=== PATIENT | female | born 1930 | race Caucasian/White ===

== ENCOUNTER → 2016-07-26 | Outpatient (CLI) | payer MEDICARE, OTHER ==
--- NOTE | ~2016-07-26 | MY11 ---
[facility] A Service of [facility] RADIOLOGY TEXT RESULTS PATIENT: ADARSH LEVI LOCATION: [facility] : 32 UNIT #: [id number] AGE: [address]: Ayesha Montiel MD SEX: F ORDER DR: [id number] [address] [address] [id number] O MR#: [id number] Acc #: [id number] NAME: ADARSH LEVI : 1930 SEX: F STUDY DATE/TIME: 07/26/2016 11:37 UNIT: [facility] ROOM: STUDY DESCRIPTION: MY Mammogram Screening Dig James Attending Physician: Ayesha Montiel M.D. Referring Physician: Ayesha Montiel M.D. Ordering Physician: Ayesha Montiel M.D. Primary Care Physician: Ayesha Montiel M.D. MEDICAL IMAGING REPORT This report is preliminary unless electronic signature is present. EXAM Bilateral digital screening mammogram with CAD. HISTORY Routine screening. No current complaints. No family history of breast cancer. COMPARISON STUDIES 07/04/2015, 06/24/2015, 06/19/2013. FINDINGS MLO and CC digital views of each breast were obtained. The exam was reviewed with an FDA-approved CAD device. The breasts are heterogeneously dense. There are no masses or abnormal calcifications. There has been no change. IMPRESSION No change; no evidence of malignancy. Patients over the age of 40 are entered into a reminder system with target due date for the next mammogram. A result letter will also be sent to the patient. BIRADS: 1 Negative Dictated by... Emile Rosas M.D. THIS IS AN ELECTRONICALLY VERIFIED REPORT [facility] A Service [facility] RADIOLOGY TEXT RESULTS PATIENT: ADARSH LEVI LOCATION: [facility] : 31 UNIT #: [id number] AGE: [address]: Ayesha Montiel MD SEX: F ORDER DR: Emile Rosas M.D. at 07/27/2016 7:13 AM LUX/claudine TD: 07/26/2016 18:09 JOB #: [id number] MEDICAL IMAGING REPORT
== END | disposition home or self-care (01) ==
LOC: SMAM 10:55
DX: Z12.31 Encounter for screening mammogram for malignant neoplasm of breast (principal)
CPT/HCPCS: G0202

== ENCOUNTER → 2016-08-03 | Outpatient (CLI) | payer MEDICARE, OTHER ==
--- NOTE | ~2016-08-03 | CR139 ---
[facility] A Service of [facility] RADIOLOGY TEXT RESULTS PATIENT: ADARSH LEVI LOCATION: [facility] : 31 UNIT #: [id number] AGE: [address]: Ayesha Montiel MD SEX: F ORDER DR: [id number] [facility] [address] [place], [place] [address] [id number] O MR#: [id number] Acc #: [id number] NAME: ADARSH LEVI : 1930 SEX: F STUDY DATE/TIME: 08/03/2016 11:33 UNIT: [facility] ROOM: STUDY DESCRIPTION: CR Hand 2 Views Rt Attending Physician: Ayesha Montiel M.D. Referring Physician: Ayesha Montiel M.D. Ordering Physician: Ayesha Montiel M.D. Primary Care Physician: Ayesha Montiel M.D. MEDICAL IMAGING REPORT This report is preliminary unless electronic signature is present EXAM Right hand, 3 views HISTORY Pain and swelling right thumb MCP joint x3 months FINDINGS Routine views of the right hand demonstrates moderately advanced arthritic changes at the first MCP joint with joint space narrowing, sclerosis and marginal osteophytes. Arthritic changes also noted at the IP joint of the thumb. Multifocal arthritic changes are seen primarily at the DIP joints second through fifth fingers most severe at the second DIP joint. Sparring of the PIP and MCP joints. No findings to suggest an erosive or crystalline arthropathy. No fracture dislocation. Bone mineralization appears normal. 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 Dictated by... Nahed Chavez M.D. THIS IS AN ELECTRONICALLY VERIFIED REPORT Nahed Chavez M.D. at 08/04/2016 2:05 PM Sai TD: 08/04/2016 09:10 JOB #: [id number] MEDICAL IMAGING REPORT COPY
== END | disposition home or self-care (01) ==
LOC: CRAD 11:21
DX: M19.041 Primary osteoarthritis, right hand (principal)
CPT/HCPCS: 73120